=== PATIENT | female | born 1985 | race American Indian/Alaskan Native ===

== ENCOUNTER 2017-02-22 03:39 | Emergency (ER) | payer SELFPAY ==
[2017-02-22 05:10] LABS: Bacteria,Urine 1+ /HPF (Negative); Bilirubin,Urine NEG (Negative); Blood,Urine NEG (Negative); Ketones,Urine NEG (Negative); Leukocyte Esterase,Urine MOD (Negative); Mucus,Urine FEW /HPF; Nitrite,Urine NEG (Negative); Protein,Urine <15 mg/dL mg/dL (Negative); Urobilinogen,Urine < 2.0 mg/dL (<2.0)
[2017-02-22] MEDS ORDERED: XYLOCAINE 1% 20 mL INFILTRATI ONE (07:29)
[2017-02-22] MEDS ORDERED: NORCO 7.5/325 PO ONE (07:29)
[2017-02-22] MEDS ORDERED: ZITHROMAX PO ONE (09:38)
[2017-02-22] MEDS ORDERED: TRIPLE ANTIBIOTIC TP ONE (09:38)
[2017-02-22] MEDS ORDERED: ROCEPHIN IM ONE (09:38)
[2017-02-22] MEDS ORDERED: XYLOCAINE 1% MPF 5 mL INFILTRATI ONE (09:38)
[2017-02-22] MEDS ORDERED: BENADRYL PO ONE ×2 (09:51)
--- NOTE | 2017-02-22 10:12 | Emergency Department Report ---
ED Female HPI - General Chief complaint: Urogenital-Female Stated complaint: CYST Source: patient Mode of arrival: Ambulatory Limitations: No Limitations - History of Present Illness Initial comments: 31 year old female presents to ED with vaginal cyst/bartholin cyst x 2days. patient states she has had same cyst previously. patient also reports dysuria and would like to be checked and treated for STD today. patient is stable, neurologically intact and in no acute distress. MD Complaint: dysuria, other (labia abscess) -: Gradual Location: labia Severity: mild Quality: burning Consistency: constant Worsens with: urination Are you Now?: No (negative preg test today) Associated Symptoms: dysuria - Related Data Sexually active: Yes Previous Rx's Medication Instructions Recorded Last Taken Type Ketorolac [Toradol] 10 mg PO Q6H PRN #20 tablet 02/22/17 Unknown Rx Sulfamethoxazole/Trimethoprim 1 each PO BID #14 tablet 02/22/17 Unknown Rx [Bactrim DS TAB] metroNIDAZOLE [Flagyl] 500 mg PO Q8HR #21 tablet 02/22/17 Unknown Rx Allergies Allergy/AdvReac Type Severity Reaction Status Date / Time No Known Allergies Allergy Unverified 02/22/17 04:20 ED Review of Systems ROS: Stated complaint: CYST Other details as noted in HPI Constitutional: denies: chills, fever Eyes: denies: eye pain, eye discharge, vision change ENT: denies: ear pain, throat pain Respiratory: denies: cough, shortness of breath, wheezing Cardiovascular: denies: chest pain, palpitations Endocrine: no symptoms reported Gastrointestinal: denies: abdominal pain, nausea, diarrhea Genitourinary: dysuria. denies: urgency, discharge Musculoskeletal: denies: back pain, joint swelling, arthralgia Skin: other (labia abscess). denies: rash, lesions Neurological: denies: headache, weakness, paresthesias Psychiatric: denies: anxiety, depression Hematological/Lymphatic: denies: easy bleeding, easy bruising ED Past Medical Hx - Past Medical History Previous Medical History?: No - Surgical History Past Surgical History?: Yes Additional Surgical History: RT eye surgery - Social History Smoking Status: Former Smoker Substance Use Type: None - Medications Home Medications: Home Medications Medication Instructions Recorded Confirmed Last Taken Type Ketorolac [Toradol] 10 mg PO Q6H PRN #20 tablet 02/22/17 Unknown Rx Sulfamethoxazole/Trimethoprim 1 each PO BID #14 tablet 02/22/17 Unknown Rx [Bactrim DS TAB] metroNIDAZOLE [Flagyl] 500 mg PO Q8HR #21 tablet 02/22/17 Unknown Rx ED Physical Exam - General Limitations: No Limitations General appearance: alert, in no apparent distress - Head Head exam: Present: atraumatic, normocephalic - Eye Eye exam: Present: normal appearance - ENT ENT exam: Present: mucous membranes moist - Neck Neck exam: Present: normal inspection - Respiratory Respiratory exam: Present: normal lung sounds bilaterally. Absent: respiratory distress - Cardiovascular Cardiovascular Exam: Present: regular rate, normal rhythm. Absent: systolic murmur, diastolic murmur, rubs, gallop - GI/Abdominal GI/Abdominal exam: Present: soft, normal bowel sounds. Absent: distended, tenderness - External exam: Present: lesions (right labia abscess present 2cm in size) Speculum exam: Present: normal speculum exam - Extremities Exam Extremities exam: Present: normal inspection, full ROM - Back Exam Back exam: Present: normal inspection - Neurological Exam Neurological exam: Present: alert, oriented X3, normal gait - Psychiatric Psychiatric exam: Present: normal affect, normal mood - Skin Skin exam: Present: warm, dry, intact, normal color. Absent: rash ED Course Vital Signs 02/22/17 02/22/17 04:20 10:18 Temperature 98.2 F Pulse Rate 82 86 Respiratory 18 18 Rate Blood Pressure 118/63 Blood Pressure 126/70 [Right] O2 Sat by Pulse 100 100 Oximetry - I & D Right Anterior Vagina Type of Procedure: Simple Site: right labia Blade Size: 11 I & D Procedure: betadine prep Progress: patient tolerated procedure well. area cleaned with betadine, applied 10cc's of lidocaine for numbing and moderate amount of purulent drainage obtained. patient understands and agrees to return within 2-3 days for recheck. ED Medical Decision Making - Lab Data Labs 02/22/17 04:38 Urine Color Yellow Urine Turbidity Clear Urine pH 6.0 Ur Specific [place] 1.025 Urine Protein <15 mg/dl Urine Glucose (UA) Neg Urine Ketones Neg Urine Blood Neg Urine Nitrite Neg Urine Bilirubin Neg Urine Urobilinogen < 2.0 Ur Leukocyte Esterase Mod Urine WBC (Auto) 69.0 H Urine RBC (Auto) 6.0 U Epithel Cells (Auto) 8.0 Urine Bacteria (Auto) 1+ Urine Mucus Few Urine HCG, Qual Negative - Medical Decision Making 31 year old female presents to ED with bartholin cyst. patient tolerated I&D procedure well. patient has GC culture pending and has been treated for STD today during ED visit. patient has urine positive for UTI and BV on wet prep. patient is stable, neurologically intact and in no acute distress. patient has negative preg test. Critical care attestation.: If time is entered above; I have spent that time in minutes in the direct care of this critically ill patient, excluding procedure time. ED Disposition Clinical Impression: Bartholin cyst UTI (urinary tract infection) Qualifiers: Urinary tract infection type: acute cystitis Hematuria presence: without hematuria Qualified Code(s): N30.00 - Acute cystitis without hematuria Disposition: - TO HOME OR SELFCARE Is pt being admited?: No Does the pt Need Aspirin: No Condition: Stable Instructions: Bacterial Vaginosis (ED), Urinary Tract Infection in Women (ED), Incision and Drainage (ED) Prescriptions: Ketorolac [Toradol] 10 mg PO Q6H PRN #20 tablet PRN Reason: Pain metroNIDAZOLE [Flagyl] 500 mg PO Q8HR #21 tablet Sulfamethoxazole/Trimethoprim [Bactrim DS TAB] 1 each PO BID #14 tablet Referrals: PRIMARY CARE, [Primary Care Provider] - 3-5 Days
[2017-02-22 10:19] VITALS: BP 126/70
== END 2017-02-22 10:18 | disposition home or self-care (01) ==
LOC: ED 03:39
DX: N75.0 Cyst of Bartholin's gland (principal); N30.00 Acute cystitis without hematuria
CPT/HCPCS: 56420; 81001; 81025; 87210; 87591; 96372; 99283; J0696; A6250